=== PATIENT | female | born 1980 | race Caucasian/White ===

== ENCOUNTER 2020-01-21 05:10 | Inpatient (IN) | payer OTHER ==
[~2020-01-21] VITALS: Ht 162.6 cm; Wt 71.7 kg
--- NOTE | ~2020-01-21 | OP ---
PATIENT NAME: NASEEM BRADSHAW MEDICAL RECORD: [id number] :80 LOCATION:[facility] D.[id number] ADMISSION DATE:01/21/20 SURGEON: ROSEMARIE WRIGHT DO DATE OF OPERATION: 01/21/2020 PREOPERATIVE DIAGNOSES: Intrauterine demise at 23 weeks and 5 days, previous section times 2 and possible placenta accreta. POSTOPERATIVE DIAGNOSIS: Intrauterine demise. No placenta accreta noted. PRIMARY SURGEON: Rosemarie Wright DO MARBLEIZING MACHINE TENDER SURGEON: Dr. Vaughn. ANESTHESIA: Spinal. PROCEDURE: Classical section via Pfannenstiel incision. FINDINGS: Female , weight 645 grams. No heart rate. Meconium stained fluid delivered en caul, fetus severely hydropic with cleft lip and palate overlapping fingers and rocker bottom feet. No placenta accreta noted. Placenta with cystic appearance, normal appearing bilateral fallopian tubes and ovaries. SPECIMENS: Fetus, placenta and cord. ESTIMATED BLOOD LOSS: 800 cc. IV FLUIDS: 1500 cc. URINE OUTPUT: 500 cc of clear urine. COMPLICATIONS: None. CONDITION: Stable. PROCEDURE IN DETAIL: The risks, benefits, alternatives and indications of the procedure were discussed with the patient. She voiced understanding of the procedure and signed the consent. She was taken to the OR where spinal anesthesia was administered and found to be adequate. She was placed in dorsal supine position with a leftward tilt. She was prepped and draped in the normal sterile fashion. A Pfannenstiel skin incision was made with the scalpel and carried down to the underlying layer of the fascia with the Bovie. The fascia was incised with the midline and extended laterally. The inferior aspect of the fascial incision was grasped with Corby clamps; however, no rectus muscle noted on the right side and very small amount of rectus muscle on the left side noted. The peritoneum was clearly identifiable. The peritoneum was identified and noted to be free of adherent bowel and entered bluntly. The peritoneum was further with gentle traction. The bladder blade was inserted. The bladder flap was created with Metzenbaum scissors and the uterus was incised in a classical fashion and extended cephalad and caudad with bandage scissors. The fetus was delivered en caul and handed off to awaiting pediatric staff. The uterus was closed with 2-0 Vicryl in a running locked fashion with a double layer closure with good hemostasis noted. Uterus, tubes, and ovaries were noted to be normal. The posterior cul-de-sac was irrigated with warm sterile saline OPERATIVE REPORT [id number] NASEEM BRADSHAW and the uterus, tubes and ovaries were returned back to the abdominal cavity. Hysterotomy was reinspected and noted to be hemostatic. As there was very little identifiable rectus muscle, the fascial incision was closed with 0 Vicryl in a running fashion with good hemostasis noted. The skin was closed in a subcuticular fashion with good hemostasis and Steri-Strips covering. All needle, lap, sponge, and instrument counts were correct times 2. The patient tolerated the procedure well and she was taken to the recovery room in stable condition. TRANSINT:[id number] Voice Confirmation ID: [id number] DOCUMENT ID: [id number] ROSEMARIE WRIGHT DO CC: [id number] DICTATION DATE: 01/23/20 1635 PIANO PLAYER: 01/23/20 1711 ADM IN [facility] [address] [place] [address]
[2020-01-21 05:44] VITALS: Ht 162.6 cm; Wt 71.7 kg
[2020-01-21 06:30] LABS: HEMATOCRIT 31.9 % (36.0-48.0); HEMOGLOBIN 10.1 g/dL (12-16); MCH 30.4 pg (26.0-34.0); MCHC 31.7 g/dL (31.0-37.0); MCV 96.1 fL (80.0-100.0); MEAN PLATELET VOLUME 9.7 fL (7.4-10.4); RBC 3.32 10x6/uL (4.00-5.40); RDW 12.8 % (11.5-14.5); WBC 4.7 10x3/uL (4.8-10.8)
--- NOTE | 2020-01-21 08:44 | NUR ---
IN ROOM. FETUS DELIVERED AT 0835.
--- NOTE | 2020-01-21 10:00 | NUR ---
SD RECEIVED BY BED FROM RECOVERY ROOM WITH BEDSIDE REPORT PER PACU NURSE. PT IS AWAKE BUT DROWSY, SHE RATES PAIN/DISCOMFORT AT 1/10 AT THIS TIME. FUNDUS FIRM WITH MASSAGE AT U/2 WITH MODERATE LOCHIA NOTED. BIKINI INCISION COVERED WITH ABD BANDAGE THAT IS CLEAN AND DRY. UNDERPADS CHANGED AT THIS TIME. IV TO RIGHT HAND INFUSING PITOCIN 20UNITS PER ORDERS, SALINE LOCK TO LEFT HAND. SCD BILAT PER ORDERS AND PUMP IS ON. SPOUSE AT BEDSIDE, SIDE RAILS UP X 2 WITH PHONE AND CALL LIGHT IN REACH.
[2020-01-21 10:03] VITALS: BP 127/70
[2020-01-21 10:15] VITALS: BP 107/67
--- NOTE | 2020-01-21 10:30 | NUR ---
PT RESTING WITH EYES CLOSED AND RESP EVEN, RATES PAIN AT 1/10 WHEN ASKED. FUNDUS FIRM AT U/2 WITH LIGHT-MODERATE LOCHIA NOTED WITHOUT CLOTS. SPOUSE REMAINS AT BEDSIDE, CALL LIGHT WITHIN PATIENTS REACH.
[2020-01-21 10:45] VITALS: BP 108/71
--- NOTE | 2020-01-21 10:45 | NUR ---
SMALL CUP OF ICE CHIPS PER REQUEST. PT DENIES NAUSEA AT THIS TIME. SPOUSE OUT TO DESK WITH QUESTIONS ABOUT INFANT AND VERIFIES THAT PT AND HIMSELF WOULD BE ABLE TO HOLD/VIEW WHEN EACH OF THEM ARE READY. REASSURED HIM THAT WHEN THEY ARE READY TO LET NURSE KNOW DOES NOT MATTER WHEN OR TIME AND WILL BE BROUGHT TO ROOM.
--- NOTE | 2020-01-21 11:30 | NUR ---
PT DENIES MORPHINE SECTION WEAVER AT THIS TIME. STATES SHE ONLY HAS SOME "MILD DISCOMFORT" SHE DOES STATE HER UNDERSTANDING THAT SECTION WEAVER IS AVAILABLE SHE ONLY NEEDS TO NOTIFIY NURSE, ALSO EXPLAINED THAT TORDAL THAT SHE RECIEVED IN RECOVERY WAS A SCHEDULED MED THAT WOULD BE GIVEN EVERY 6HOURS. RATES PAIN AT 2/10 AT THIS TIME. FUNDUS FIRM AT U/2 WITH LIGHT BLEEDING WITHOUT CLOTS. TOWELS CHANGED. CALL LIGHT IN REACH WITH SPOUSE AT BEDSIDE.
--- NOTE | 2020-01-21 11:45 | NUR ---
FUNDUS FIRM WITH MASSAGE AT U/2, NO CLOTS NOTED WITH LIGHT LOCHIA PRESENT. NEW ICE PACK PROVIDED FOR INCISION AND PT IS ABLE TO COUGH X 2 AFTER HER USE OF INCENTIVE SPIROMETER. DENIES NEEDS. CALL LIGHT IN REACH.
[2020-01-21 12:00] VITALS: BP 118/79
--- NOTE | 2020-01-21 12:30 | NUR ---
CLEAR LIQUID DIET PER DIETARY, PT DENIES NAUSEA AT THIS TIME. SPOUSE OUT TO UNIT DESK EXPLAINS THAT HE HAS TO LEAVE TO CARE FOR THIER OTHER CHILDREN, HE IS REASSURED THAT HE WOULD BE ABLE TO RETURN BUT WOULD HAVE TO GO THRU CHECK POINT AGAIN AND REMINDED NO CHILDREN ARE ALLOWED AT THIS TIME.
--- NOTE | 2020-01-21 13:00 | NUR ---
CALLED TO ROOM, PT STATES THAT SHE IS FEELING MORE CRAMPING AND RATES AT 4/10. REQUEST THAT MORPHINE COIL ASSEMBLER BE STARTED NOW. THIS IS DONE AND VERIFIED PER EMAR. PT SHOWS UNDERSTANDING OF COIL ASSEMBLER USE. FUNDUS FIRM WITH MASSAGE AT U/2 WITH LIGHT TO MODERATE BLEEDING NOTED. TOWELS CHANGED AND PT TILTED TO HER LEFT SIDE. SIDE RAILS UP X 2 WITH CALL LIGHT IN REACH.
--- NOTE | 2020-01-21 14:30 | NUR ---
PT RESTING WITH EYES CLOSED AND RESP EVEN, LEFT UNDISTURBED AT THIS TIME,
--- NOTE | 2020-01-21 15:18 | NUR ---
PT CALLS OUT WITH REQUEST FOR ICE WATER. NO OTHER NEEDS AT THIS TIME. RATES PAIN AT 2/10. CALL LIGHT IN REACH. N
--- NOTE | 2020-01-21 16:00 | NUR ---
CALLED TO ROOM, PT ASK IF SHE WOULD BE ABLE TO SEE TOMORROW IF SHE CHOOSE TO WAIT FOR SPOUSE. REASSURED HER THAT WOULD NOT BE AN ISSUE. ALSO VERIFIED THAT PT AND SPOUSE WERE REQUESTING TO TAKE HOME WITH THEM, EXPLAINED THAT HOSPITAL POLICY/RISK MANAGEMENT WOULD BE NOTIFIED TO VERIFY THAT WAS AN OPTION. PT VOICES HER UNDERSTANDING, NO OTHER NEEDS AT THIS TIME.
--- NOTE | 2020-01-21 17:00 | NUR ---
IVAC CLEARED AND VOLUME INFUSED DOCUMENTED ON I/O. PT RATES PAIN AT 2/10, SHE DOES USE INCENTIVE SPIROMETER WHEN ASKED TO, FUNDUS FIRM AT U/2 WITH LIGHT BLEEDING NOTED. UNDERPAD AND TOWELS CHANGED WITH PT ASSISTANCE OF RAISING BOTTOM OFF THE BED. PENA CATH EMPTIED WITH 300ML NOT TO COLLECTION CANISTER AND TOTAL OUTPUT OF 1100ML. DENIES NEEDS AT THIS TIME. CALL LIGHT IS WITHIN REACH.
--- NOTE | 2020-01-21 19:10 | NUR ---
REPORT GIVEN BY SAM REY RN
[2020-01-21 19:45] VITALS: BP 113/71
--- NOTE | 2020-01-21 19:45 | NUR ---
ASSESSMENT COMPLETED. PT IS LAYING IN BED. SHE STATES SHE HAS NO PAIN. SHE HAS A RETAIL PROJECT MERCHANDISER PUMP AND KNOWS TO PUSH THE BUTTON WHEN SHE IS IN PAIN. FUNDUS IS FIRM. BLEEDING IS SMALL TO MOD. PENA CATHETER IS DRAINING WELL CONCENTRATED LOOKING URINE. HEART SOUNDS NORMAL. LUNGS CLEAR AND NO BOWEL SOUNDS HEARD. SHE HAS A LARGE WHITE DRESSING TO HER ABD WITH NO DRAINAGE NOTED. SHE REQUESTED A CUP OF ICE WHICH WAS DELIVERED TO HER. SHE HAS TEARS RUNNING DOWN HER FACE AT TIMES.
--- NOTE | 2020-01-22 00:05 | NUR ---
ROUNDS MADE. TORADOL 30 MG GIVEN IV. PT STATES SHE IS COMFORTABLE.
[2020-01-22 00:29] VITALS: BP 108/62
--- NOTE | 2020-01-22 04:00 | NUR ---
PT IS RESTING WITH HER EYES CLOSED. NO C/O NO NEEDS
--- NOTE | 2020-01-22 06:04 | NUR ---
PT ASKED ME IF SHE AND HER SHOULD USE A HOME OR JUST TAKE "THE BABY " HOME WITH THEM. I TOLD HER THAT I DO NOT KNOW THE LEGALITIES OF THIS. SHE IS VERY TEARFUL BUT SHE STATES SHE KNOWS THIS IS ALL FOR THE BEST. I GOT A WARM WASHCLOTH AND CLEANED HER NAVNEET AREA BECAUSE I SAW CLOTS THERE. THERE WERE SEVERAL SMALL CLOTS THAT WERE REMOVED. SHE HAS BED PADS, SANITARY PADS AND DISPOSIBLE PANTIES IN HER ROOM. HER PENA WAS EMPTIED WITH 400 ML OF VERY CONCENTRATED URINE. I HAVE BEEN ENCOURAGING HER ALL SHIFT TO REALLY DRINK A LOT OF WATER AND THIS WAS REINFORCED AGAIN. HER FUNDUS IS FIRM. IV FLUIDS CONT AT 125 ML/HR. PT RATES HER PAIN A 2.
[2020-01-22 06:08] LABS: RAPID PLASMA REAGIN Non Reactive (Non Reactive)
[2020-01-22 07:24] LABS: BASOPHILS 0.1 % (0-2); EOSINOPHILS 1.9 % (0-7); HEMATOCRIT 30.8 % (36.0-48.0); HEMOGLOBIN 9.6 g/dL (12-16); IMMATURE GRANULOCYTES 0.1 % (0-5); LYMPHOCYTES 9.7 % (15-50); MCH 30.3 pg (26.0-34.0); MCHC 31.2 g/dL (31.0-37.0); MCV 97.2 fL (80.0-100.0); MEAN PLATELET VOLUME 10.5 fL (7.4-10.4); MONOCYTES 5.7 % (2-11); NEUTROPHILS 82.5 % (40-80); PLATELET COUNT 202 10x3/uL (130-400); RBC 3.17 10x6/uL (4.00-5.40); RDW 12.7 % (11.5-14.5); WBC 7.3 10x3/uL (4.8-10.8)
--- NOTE | 2020-01-22 08:00 | NUR ---
AM ASSESSMENT COMPLETED. FUNDUS FIRM WITH MASSAGE AT U/2, LIGHT BLEEDING WITHOUT CLOTS NOTED, BANDAGE TO BIKINI INCISION NOTED TO BE CLEAN AND DRY. UNDERPAD CHANGED. PENA TO BEDSIDE DRAIN WITH 200ML DARK BUT CLEAR URINE NOTED. SALINE LOCK TO LEFT HAND FLUSHED EASILY WITH 5ML NS, IV TO RIGHT HAND INFUSING PER ORDERS. BOWEL SOUNDS ACTIVE X 4 AND PT STATES THAT SHE HAS STARTED TO PASS GAS, REGULAR DIET TRAY ORDERED. RATES PAIN AT 2/10, DENIES NEEDS OR CONCERNS AT THIS TIME. SIDE RAILS UP X 2 WITH CALL LIGHT IN REACH.
--- NOTE | 2020-01-22 09:50 | NUR ---
ROUNDS MADE PER DR WRIGHT, ORDERS RECEIVED TO ADVANCE PLAN OF CARE TO INCLUDE SALINE LOCK IV, REMOVE PENA, PT MAY SHOWER AND AMBULATE IN HALLS. PO PAIN MED ORDERS ALSO RECEIVED.
--- NOTE | 2020-01-22 11:00 | NUR ---
PT RESTING WITH EYES CLOSED AT THIS TIME, NO DISTRESS NOTED, LEFT UNDISTURBED.
--- NOTE | 2020-01-22 12:00 | NUR ---
PT AWAKE AT THIS TIME, RATES PAIN AT 4/10. MEDS GIVEN SCANNED TO EMAR. PENA CATH REMOVED INTACT WITH TOTAL OF 1000ML DARK URINE NOTED. PT ABLE TO MOVE SELF TO SITTING UP ON SIDE OF BED WITHOUT COMPLAINT OF DIZZINESS OR NAUSEA. AMBULATES TO BATHROOM AND ABLE TO VOID APPROX 50CC, PROVIDED WITH WARM WET WASH CLOTH FOR NAVNEET CARE. MESH BRIEFS AND NAVNEET PAD ON WITH GOWN CHANGED. PT WALKS TO BEDSIDE CHAIR TO EAT HER LUNCH. CALL LIGHT IN REACH.
--- NOTE | 2020-01-22 13:45 | NUR ---
PT UP AND WALKING IN HALLS, DENIES NEEDS AT THIS TIME.
--- NOTE | 2020-01-22 17:20 | NUR ---
LARGE CUP OF ICE WATER REQUESTED. SITTING UP ON SIDE OF BED WITH REGULAR DIET TRAY. RATES PAIN AT 2/10 AT THIS TIME AND DENIES NEEDS. CALL LIGHT IS WITH IN REACH. PT HAS VOIDED 400ML CLEAR URINE.
--- NOTE | 2020-01-22 19:26 | NUR ---
RECEIVED SHIFT REPORT FROM SAM ZENDEJAS, RN, PT WATCHING TV, INFORMED PT THAT I WILL BE BE SHORTLY TO DO ASSESSMENT, PT VERBALIZES UNDERSTANDING, DENIES NEEDS OR PAIN AT THIS TIME, BED IN LOW POSITION, SIDE RAILS X 2, CALL LIGHT IN REACH
[2020-01-22 20:23] VITALS: BP 113/70
--- NOTE | 2020-01-22 20:23 | NUR ---
PT FREIGHT SOLICITOR LIGHT, PT REQUESTS SOMETHING FOR "GAS", THIS RN TO ROOM, ASSESSMENT PER FLOW SHEET, VS OBTAINED, SALINE LOCK IN RIGHT HAND AND LEFT HAND INTACT WITH NO REDNESS OR EDEMA, BIKINI INC WITH STERI STRIPS CDI WITH NO DRAINAGE NOTED, NAVNEET PAD OVER INC FOR COMFORT AND MOISTURE CONTROL, PT REPORTS FLATUS, NO BM, VOIDING WITH NO DIFFICULTY, AND LITE BLEEDING WITH NO CLOTS, ADM MOTRIN AND MYLICON PO PER MD ORDERS, SEE EMAR, PT DENIES FURTHER NEEDS, BED IN LOW POSITION, SIDE RAILS X 2, CALL LIGHT IN REACH
--- NOTE | 2020-01-22 21:30 | NUR ---
PT AROUSES TO OPENING OF DOOR, WARM BLANKET PROVIDED, DENIES FURTHER NEEDS
--- NOTE | 2020-01-22 22:28 | NUR ---
PT RESTING WITH EYES CLOSED, RESP QUIET, NO DISTRESS NOTED, LEFT UNDISTURBED AT THIS TIME, BED IN LOW POSITION, SIDE RAILS X 2, CALL LIGHT IN REACH
[2020-01-23] VITALS: BP 101/54
--- NOTE | 2020-01-23 | NUR ---
PT RESTING WITH EYES CLOSED, AROUSES TO SOFT VERBAL STIMULATION, VS OBTAINED, PT DENIES NEEDS OR PAIN AT THIS TIME
--- NOTE | 2020-01-23 02:30 | NUR ---
PT RESTING WITH EYES CLOSED, AROUSES TO SOFT VERBAL STIMULATION, ADM MOTRIN AND MYLICON PO PER MD ORDERS, PT DENIES FURTHER NEEDS AT THIS TIME
--- NOTE | 2020-01-23 04:10 | NUR ---
PT RESTING WITH EYES CLOSED, RESP QUIET, NO DISTRESS NOTED, LEFT UNDISTURBED AT THIS TIME
--- NOTE | 2020-01-23 08:00 | NUR ---
AM ASSESSMENT COMPLETED CHARTED TO FLOWSHEET. PT DENIES PAIN OR DISCOMFORT AT THIS TIME.
--- NOTE | 2020-01-23 08:20 | NUR ---
DR WRIGHT GIVES DISCHARGE ORDER AFTER SEE PT THIS AM, PT TO FOLLOW UP WITH MD IN 2 WEEKS.
--- NOTE | 2020-01-23 08:30 | NUR ---
PT DENIES MOTRIN AT THIS TIME. SALINE LOCK REMOVED FROM RIGHT AND LEFT HAND BOTH CATH NOTED TO BE INTACT. PT GIVEN PAPERWORK TO FILL OUT IN REGARDS TO INFANT. WILL CALL IF ANY ASSISTANCE IS NEEDED.
--- NOTE | 2020-01-23 09:00 | NUR ---
[facility] NOTIFIED ABOUT SERVICES OFFERED FOR . PER PAZ EWING WOULD BE PICKED UP FROM HOSPITAL WITH SERVICE DESIRED BY PARENTS FREE OF CHARGE. THIS INFO IS GIVEN TO PT WHO STATES SHE WILL CALL HER SPOUSE AND LET NURSE KNOW.
--- NOTE | 2020-01-23 10:45 | NUR ---
DENIES PAIN OR DISCOMFORT AT THIS TIME. PT HAS SHOWERED AND IS DRESSED IN HER CLOTHING WAITING FOR SPOUSE TO PICK HER UP. ALSO REQUEST THAT [facility] BE NOTIFIED TO COME PICK UP. PT ASK THAT THEY NOT BE CALLED UNTIL SHE LEAVES, STATES SHE DOES NOT WANT TO BE PRESENT WHEN THAT OCCURS.
--- NOTE | 2020-01-23 11:30 | NUR ---
PT CALLS OUT FOR NURSE, THIS RN TO ROOM. PT STATES THAT SPOUSE IS EN ROUTE AND WOULD IT BE POSSIBLE TO MEET HIM AT ENTRANCE REASSURED HER THAT WOULD OK. LARGE ICE WATER PER REQUEST AND REGULAR DIET TRAY SERVED.
[2020-01-23] MEDS ORDERED: PERCOCET 5-3251 TAB PO (12:01)
--- NOTE | 2020-01-23 12:20 | NUR ---
VERBAL AND WRITTEN DISCHARGE INSTRUCTIONS GONE OVER, PT ALSO PROVIDED WITH WRITTEN SCRIPT FOR PERCOCET 5/325MG. SHE STATES HER UNDERSTANDING AND DENIES QUESTIONS. TAKEN TO ER ENTRANCE PER WHEELCHAIR WHERE SPOUSE IS WAITING. COUPLE ARE PROVIDED WITH CONTACT INFO FOR [facility]. ALSO VERIFIED HER HOME PHONE NUMBER TO GIVE TO HOME. PT HOME BY PRIVATE CAR WITH SPOUSE.
--- NOTE | 2020-01-23 13:45 | NUR ---
[facility] CONTACTED, SPOKE WITH KEVIN AND PROVIDED HER WITH PT INFO. AND WHERE INFANT WAS TO BE PICKED UP FROM AT HOSPITAL.
--- NOTE | 2020-01-23 14:30 | NUR ---
INFANT TRANSFERRED OFF UNIT WITH HARITH[facility] PERSONNEL.
== END 2020-01-23 12:45 | disposition home or self-care (01) | DRG 788 ==
LOC: D.WS 05:10 → D.LD 05:10 → D.SDCHOLD 07:00 → D.WS 09:53
PROVIDERS: ADMIT Student in an Organized Health Care Education/Training Program; ATTEND Student in an Organized Health Care Education/Training Program
PROC: 10D00Z1 Extraction of Products of Conception, Low, Open Approach (ICD-10-PCS; principal; 2020-01-21 07:00)
DX: O36.4XX0 Maternal care for intrauterine death, not applicable or unspecified (principal); Z3A.23 23 weeks gestation of pregnancy; Z37.1 Single stillbirth; O77.0 Labor and delivery complicated by meconium in amniotic fluid; O43.192 Other malformation of placenta, second trimester